=== PATIENT | female | born 1970 | race Caucasian/White ===

== ENCOUNTER → 2020-09-24 09:49 | Outpatient (BNVA) | payer OTHER, SELFPAY | PROVIDERS: PCP Physician Assistant; Referring Provider Physician Assistant; Visit Provider Physician Assistant | DX: E66.01 Morbid (severe) obesity due to excess calories (principal); E78.5 Hyperlipidemia, unspecified; Z98.51 Tubal ligation status | CPT/HCPCS: 99212 ==

== ENCOUNTER 2020-10-01 09:21 | Outpatient (REF) | payer OTHER, SELFPAY ==
--- NOTE | ~2020-10-01 | XR_ITS ---
EXAMINATION: XR CHEST CLINICAL INFORMATION: Obesity COMPARISON: None TECHNIQUE: 2 views of the chest were obtained. FINDINGS: No significant abnormality is noted involving the heart, lungs, mediastinum, bony thorax or soft tissues. XR/XR chest 2V IMPRESSION: Unremarkable examination.
--- NOTE | 2020-10-01 09:43 | ECG_ITS ---
Test Reason : E66.01 Blood Pressure : / mmHG Vent. Rate : 067 BPM Atrial Rate : 067 BPM P-R Int : 150 ms QRS Dur : 086 ms QT Int : 400 ms P-R-T Axes : -22 008 014 degrees QTc Int : 422 ms Normal sinus rhythm Normal ECG No significant changes when compared with the previous EKG of 2020 Referred By: Yamila Pastor Electronically Signed By:BEBE CM
[2020-10-01 10:53] LABS: MANUAL DIFF FLAG NO
[2020-10-01 11:02] LABS: Basophils Absolute Auto 0.1 X10*3/uL (0.0-0.2); Basophils Percent Auto 1.2 % (0-2); Eosinophils Absolute Auto 0.5 X10*3/uL (0.0-0.4); Eosinophils Percent Auto 7.2 % (0-4); Hematocrit 38.6 % (37-47); Hemoglobin 12.3 g/dl (12.0-16.0); Imm Gran Abs Auto 0.02 X10*3/uL (0.00-0.03); Imm Gran Pct Auto 0.3 % (0.0-0.4); Lymphocytes Absolute Auto 1.5 X10*3/uL (1.2-4.9); Lymphocytes Percent Auto 21.5 % (20-40); Mean Corpuscular HGB Conc 31.9 g/dl (31.0-35.0); Mean Corpuscular Volume 87.9 fL (80-98); Mean Platelet Volume 8.6 fL (9.4-12.3); Monocytes Absolute Auto 0.5 X10*3/uL (0.1-1.2); Monocytes Percent Auto 7.6 % (2-11); Neutrophils Absolute Auto 4.3 X10*3/uL (2.0-8.3); Neutrophils Percent Auto 62.2 % (45-73); Platelet Count 423 X10*3/uL (160-400); Red Blood Count 4.39 X10*6/uL (4.20-5.50); Red Cell Distribution Width 13.2 % (11.0-16.0); White Blood Count 6.9 X10*3/uL (4.8-10.8)
[2020-10-01 11:19] LABS: Alanine Aminotransferase 22 U/L (0-31); Albumin Level 3.9 g/dL (3.5-5.0); Alkaline Phosphatase 105 U/L (39-117); Anion Gap 13 (12-20); Aspartate Amino Transferase 20 U/L (5-31); Bilirubin Total 0.4 mg/dL (0.0-1.0); Blood Urea Nitrogen 15 mg/dL (9-16); Carbon Dioxide 22 mmol/L (22-29); Chloride 106 mmol/L (96-108); Cholesterol 256 mg/dL; Estimated Glomerular Filt Rate > 60; Glucose Random 108 mg/dL (60-115); HDL Cholesterol 53 mg/dL; Iron 78 mcg/dL (30-160); LDL Cholesterol Calculated 178 mg/dl; Percent Iron Saturation 20 % (15-50); Potassium 4.1 mmol/L (3.3-5.1); Sodium 137 mmol/L (135-145); Total Iron Binding Capacity 381 mcg/dL (228-428); Total Protein 7.2 g/dL (6.5-8.0); Triglycerides 129 mg/dL; Unsaturated Iron Binding 303 ug/dL
[2020-10-01 11:46] LABS: Estimated Average Glucose 108 mg/dL; Hemoglobin A1c % 5.4 %
[2020-10-01 11:53] LABS: TSH reflex Free T4 0.56 uIU/mL (0.32-4.0); Vitamin D 25-OH Total 31.2 ng/mL (>30)
[2020-10-01 11:56] LABS: Folate > 20.0 ng/mL (> or = 4.0); Vitamin B12 934 pg/mL (200-900)
[2020-10-01 12:23] LABS: Ferritin 17 ng/mL (10-250)
[2020-10-02 06:32] LABS: Insulin Level Total 11.8 uIU/mL
[2020-10-02 12:32] LABS: H Pylori Breath Test NOT DETECTED (NOT DETECTED)
[2020-10-03 10:22] LABS: Calcium (PTHI) 9.2 mg/dL (8.6-10.2); PTHI 44 pg/mL (14-64)
[2020-10-03 16:51] LABS: Zinc 78 mcg/dL (60-130)
[2020-10-05 12:16] LABS: Vitamin B1 9 nmol/L (8-30)
[2020-10-06 03:47] LABS: Vitamin A 51 mcg/dL (38-98)
== END 2020-10-01 09:22 | disposition home or self-care (01) ==
LOC: HO.LAB 09:21
PROVIDERS: Visit Provider Physician Assistant
DX: E66.01 Morbid (severe) obesity due to excess calories (principal); E78.5 Hyperlipidemia, unspecified
CPT/HCPCS: 36415; 71046; 80053; 80061; 82306; 82607; 82728; 82746; 83013; 83036; 83525; 83540; 83970; 84425; 84443; 84590; 84630; 85025; 86140; 93005; 99211

== ENCOUNTER → 2020-10-17 08:21 | Outpatient (BNVA) | payer OTHER, SELFPAY | PROVIDERS: PCP Physician Assistant; Visit Provider Physician Assistant ==

== ENCOUNTER → 2020-10-23 08:09 | Outpatient (BNVA) | payer OTHER, SELFPAY | PROVIDERS: PCP Physician Assistant; Visit Provider Dietitian, Registered ==

== ENCOUNTER → 2020-11-11 08:12 | Outpatient (BNVA) | payer OTHER, SELFPAY | PROVIDERS: PCP Physician Assistant; Visit Provider Dietitian, Registered ==

== ENCOUNTER → 2021-11-04 09:10 | Outpatient (BNVA) | payer OTHER, SELFPAY | PROVIDERS: PCP Physician Assistant; Referring Provider Physician Assistant; Visit Provider Physician Assistant | DX: E66.9 Obesity, unspecified (principal); Z68.39 Body mass index [BMI] 39.0-39.9, adult; G47.33 Obstructive sleep apnea (adult) (pediatric) | CPT/HCPCS: 99212 ==